=== PATIENT | female | born 1990 | race Caucasian/White ===

== ENCOUNTER 2016-11-08 13:14 | Emergency (ER) | payer MEDICAID, OTHER ==
[~2016-11-08] VITALS: Ht 152.4 cm; Wt 70.0 kg
[2016-11-08] MEDS ORDERED: TETANUS, DIPHTHERIA, PERTUSSIS VAC/PF 0.5ML (>7YR OLD) IM ONE (14:45)
[2016-11-08] MEDS ORDERED: LIDOCAINE HCL 1% 20ML VIAL (Pyxis) INJ INFIL ONE (14:45)
[2016-11-08 14:54] LABS: HCG SCREEN NEGATIVE
[2016-11-08] MEDS ORDERED: IBUPROFEN 600MG TABLET PO ONE (16:15)
[2016-11-08 16:54] VITALS: BP 116/54
== END 2016-11-08 16:55 | disposition home or self-care (01) ==
LOC: EDBD 13:31 → ER 13:31
DX: S06.899A Other specified intracranial injury with loss of consciousness of unspecified duration, initial encounter (principal); S01.511A Laceration without foreign body of lip, initial encounter; M54.2 Cervicalgia; R68.84 Jaw pain; Y04.2XXA Assault by strike against or bumped into by another person, initial encounter; Y07.499 Other family member, perpetrator of maltreatment and neglect; Y93.89 Activity, other specified; Y92.098 Other place in other non-institutional residence as the place of occurrence of the external cause; Z23 Encounter for immunization
CPT/HCPCS: 70450; 70486; 72125; 84703; 90471; 90715; 99285; X7700; Z7610; J3490

== ENCOUNTER 2024-12-17 23:48 | Emergency (ER) | payer MEDICAID, OTHER ==
[~2024-12-17] VITALS: Ht 165.1 cm; Wt 65.4 kg
[2024-12-17 23:51] VITALS: O2SAT 99
[2024-12-18] MEDS: SODIUM CHLORIDE 0.9% (SEPSIS BOLUS) IV ONE (00:44)
[2024-12-18] MEDS: PIPERACILLIN/TAZO 3.375G/50ML 50 ML IV ONE (00:44)
[2024-12-18 00:55] LABS: BASOPHILS % 0.3 % (0.0-2.0); EOSINOPHILS % 1.0 % (0.0-5.0); HEMATOCRIT. 30.6 % (36.0-48.0); HEMOGLOBIN. 10.3 g/dL (12.0-16.0); LYMPHOCYTES % 14.0 % (20.0-50.0); MEAN PLATELET VOLUME 8.2 fl (7.4-10.4); MONOCYTES % 6.9 % (2.0-8.0); NEUTROPHILS % 77.8 % (40.0-76.0); PLATELET 220 x1000/uL (130-400); RED BLOOD CELL COUNT 3.89 mill/uL (4.2-5.4); RED CELL DISTRIBUTION WIDTH 21.4 % (11.6-14.6)
[2024-12-18 01:06] LABS: CREATININE 0.8 mg/dL (0.6-1.0); INR 1.0; UREA NITROGEN BLOOD 15 mg/dL (9-23)
[2024-12-18] MEDS: VANCOMYCIN 1G PREMIX 200 ML IV ONE (01:07)
[2024-12-18 01:08] LABS: ASPARTATE AMINOTRANSFERASE 20 IU/L (<34); BILIRUBIN DIRECT < 0.1 mg/dL (<=3.0); BILIRUBIN TOTAL 0.2 mg/dL (0.1-1.0); PROTEIN TOTAL 6.7 g/dL (6.0-8.3)
[2024-12-18] MEDS: LIDOCAINE HCL 1% 20ML VIAL INFIL ONE (01:14)
[2024-12-18 02:05] VITALS: TEMP 36.9; O2SAT 100
[2024-12-18 02:24] VITALS: BP 117/78; PULSE 106; RESP 14
[2024-12-18] MEDS: HYDROCODONE/ACETAMINOPHEN 10/325MG TABLET PO ONE (02:24)
== END 2024-12-18 03:00 | disposition left against medical advice (07) ==
LOC: ER 12-18 00:13 → EDBEDREQTM 12-18 01:44 → EDBEDREQ 12-18 01:44 → ENRESERV 12-18 02:00 → ER 12-18 03:00 → CMPBEDREQ 12-18 08:12
DX: A41.9 Sepsis, unspecified organism (principal); L02.512 Cutaneous abscess of left hand; L02.413 Cutaneous abscess of right upper limb
CPT/HCPCS: 99291; 96365; 10060; 71045; 96375; 80076; 80048; 83605; 85025; 85610; 87040; 36415; 84145; 93005; J2003; J2543; J3373; J7030